=== PATIENT | male | born 1970 | race Caucasian/White ===

== ENCOUNTER 2022-03-09 20:35 | Emergency (ER) | payer SELFPAY ==
[~2022-03-09] VITALS: Ht 160 cm; Wt 79.0 kg
[2022-03-09 20:54] VITALS: BP 130/82
[2022-03-09] MEDS ORDERED: TETANUS, DIPHTHERIA, PERTUSSIS VAC/PF 0.5ML (>10YR OLD) IM ONE (21:30)
[2022-03-09] MEDS ORDERED: BACITRACIN ZINC OINT UDPKT TOP ONE (21:30)
== END 2022-03-09 23:03 ==
LOC: ER 20:35
DX: S01.01XA Laceration without foreign body of scalp, initial encounter (principal); Y00.XXXA Assault by blunt object, initial encounter; Y93.89 Activity, other specified; I10 Essential (primary) hypertension; E11.9 Type 2 diabetes mellitus without complications; Y92.89 Other specified places as the place of occurrence of the external cause
CPT/HCPCS: 90471; 90715; 99284

== ENCOUNTER 2025-05-13 21:52 | Emergency (ER) | payer SELFPAY ==
[~2025-05-13] VITALS: Ht 172.7 cm; Wt 82.0 kg
[2025-05-13 21:55] VITALS: O2SAT 99
[2025-05-13 22:15] VITALS: TEMP 36.9
[2025-05-13] MEDS ORDERED: TETANUS, DIPHTHERIA, PERTUSSIS VAC/PF 0.5ML (>10YR OLD) IM ONE (22:45)
[2025-05-13 22:46] LABS: CHLORIDE 101 mEq/L (98-107); POTASSIUM 4.1 mEq/L (3.5-5.1); SODIUM 137 mEq/L (136-145)
[2025-05-13 22:47] LABS: CALCIUM 9.6 mg/dL (8.7-10.4); CARBON DIOXIDE 27 mEq/L (21-32)
[2025-05-13 22:51] LABS: BASOPHILS % 0.5 % (0.0-2.0); EOSINOPHILS % 1.2 % (0.0-5.0); HEMATOCRIT. 47.1 % (42.0-52.0); HEMOGLOBIN. 16.1 g/dL (14.0-18.0); LYMPHOCYTES % 26.4 % (20.0-50.0); MEAN CORPUSCULAR HEMOGLOBIN 30.7 pg (28.0-32.0); MEAN CORPUSCULAR HGB CONC 34.2 g/dL (31.0-37.0); MEAN CORPUSCULAR VOLUME 89.6 fL (80.0-94.0); MEAN PLATELET VOLUME 7.3 fl (7.4-10.4); MONOCYTES % 6.7 % (2.0-8.0); NEUTROPHILS % 65.2 % (40.0-76.0); PLATELET 204 x1000/uL (130-400); RED BLOOD CELL COUNT 5.25 mill/uL (4.7-6.1); RED CELL DISTRIBUTION WIDTH 14.5 % (11.6-14.6); WHITE BLOOD COUNT 7.4 x1000/uL (4.5-11.0)
[2025-05-13 22:52] LABS: CREATININE 1.1 mg/dL (0.6-1.3); GLUCOSE 281 mg/dL (70-105); UREA NITROGEN BLOOD 22 mg/dL (9-23)
[2025-05-13] MEDS ORDERED: ACETAMINOPHEN 325MG TABLET PO SCH (23:45)
[2025-05-14] MEDS: LIDOCAINE HCL/PF 1% 10 MG/ML 5ML VIAL INFIL SCH
[2025-05-14] MEDS ORDERED: GUAI600T26 MT (01:09)
[2025-05-14] MEDS ORDERED: IBUP-2029 MT (01:09)
[2025-05-14] MEDS ORDERED: AMOX-405 MT (01:09)
[2025-05-14] MEDS ORDERED: HYDR-4001 MT (01:17)
[2025-05-14] MEDS: BACITRACIN ZINC OINT UDPKT TOP ONE (02:43)
[2025-05-14] MEDS: TETANUS, DIPHTHERIA, PERTUSSIS VAC/PF 0.5ML (>10YR OLD) IM ONE (02:56)
[2025-05-14] MEDS: HYDROCODONE/ACETAMINOPHEN 5/325MG TABLET PO ONE (02:58)
[2025-05-14] MEDS: AMOXICILLIN/POTASSIUM CLAVULANATE 875/125MG TAB PO SCH (02:58)
[2025-05-14 03:10] VITALS: BP 133/90; PULSE 82; RESP 21; O2SAT 94
== END 2025-05-14 03:19 | disposition home or self-care (01) ==
LOC: ER 21:52
DX: S02.85XA Fracture of orbit, unspecified, initial encounter for closed fracture (principal); S01.412A Laceration without foreign body of left cheek and temporomandibular area, initial encounter; M54.50 Low back pain, unspecified; E11.9 Type 2 diabetes mellitus without complications; I10 Essential (primary) hypertension; Z79.899 Other long term (current) drug therapy; Y04.0XXA Assault by unarmed brawl or fight, initial encounter; Y93.89 Activity, other specified; Y92.89 Other specified places as the place of occurrence of the external cause; Y99.8 Other external cause status
CPT/HCPCS: 80048; 85025; 36415; 70450; 70486; 72131; 12011; 99285; 73130; 90715; 90471; J2003; Z7610